=== PATIENT | male | born 1995 | race Caucasian/White ===

== ENCOUNTER 2017-12-12 19:54 | Emergency (ER) | payer OTHER ==
[2017-12-12] MEDS ORDERED: KETOROLAC TROMETHAMINE 60 MG/2 ML SDV IM ONE (20:21)
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
[2017-12-12 21:10] VITALS: BP 123/67
== END 2017-12-12 21:05 | disposition home or self-care (01) ==
LOC: ER 19:54
DX: S16.1XXA Strain of muscle, fascia and tendon at neck level, initial encounter (principal); M54.2 Cervicalgia; V49.60XA Unspecified car occupant injured in collision with unspecified motor vehicles in traffic accident, initial encounter; Y92.414 Local residential or business street as the place of occurrence of the external cause; M79.10 Myalgia, unspecified site
CPT/HCPCS: 99283; 96372; 72050; L0120; J1885

== ENCOUNTER 2019-01-14 21:38 | Emergency (ER) | payer OTHER ==
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
--- NOTE | 2019-01-14 23:46 | RADIOLOGY REPORT (SQ) ---
EXAM DESCRIPTION: [facility]: CT HEAD WITHOUT IV CONTRAST CLINICAL HISTORY: 23 years Male; head injury TECHNIQUE: Noncontrast CT head. All CT scans at this facility use dose modulation, iterative reconstruction, and/or weight based dosing when appropriate to reduce radiation dose to as low as reasonably achievable. COMPARISON: None. FINDINGS: Hendrickson matter, white matter, ventricles, and cisterns are within normal limits. No acute hemorrhage or mass effect. Visualized portions of paranasal sinuses and mastoids are clear. There is incidental incomplete union of the anterior and posterior C1 ring. No acute calvarial fractures. IMPRESSION: 1. No acute intracranial findings.
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
[2019-01-15 02:20] VITALS: BP 130/78
== END 2019-01-15 02:20 | disposition home or self-care (01) ==
LOC: ER 21:38
DX: S06.0X9A Concussion with loss of consciousness of unspecified duration, initial encounter (principal); R42 Dizziness and giddiness; F17.200 Nicotine dependence, unspecified, uncomplicated; Y04.0XXA Assault by unarmed brawl or fight, initial encounter; Y92.148 Other place in prison as the place of occurrence of the external cause
CPT/HCPCS: 70450; 99284